=== PATIENT | female | born 1985 | race Caucasian/White ===

== ENCOUNTER 2017-02-13 10:02 | Emergency (ER) | payer OTHER ==
[2017-02-13 11:57] LABS: HEMOGLOBIN 11.1 gm/dl (12.3-15.3); RED BLOOD COUNT 3.83 M/UL (4.00-5.10); WHITE BLOOD COUNT 5.5 K/UL (4.5-11.0)
[2017-02-13 12:22] LABS: BUN/CREATININE RATIO 17 (0-10)
== END 2017-02-13 14:40 | disposition home or self-care (01) ==
LOC: ER1 10:02
PROVIDERS: Emergency Medicine
DX: G40.409 Other generalized epilepsy and epileptic syndromes, not intractable, without status epilepticus (principal); F17.200 Nicotine dependence, unspecified, uncomplicated
CPT/HCPCS: 36415; 71010; 80053; 80307; 81001; 82550; 82553; 83874; 84484; 84703; 85025; 93005; 96374; 99284; G0480; J1953; J7040; J7050

== ENCOUNTER → 2017-02-20 | Outpatient (CLI) | payer OTHER | LOC: LAB 15:11 | DX: Z11.4 Encounter for screening for human immunodeficiency virus [HIV] (principal); E72.20 Disorder of urea cycle metabolism, unspecified | CPT/HCPCS: 36415; 80074; 82140; 87390 ==

== ENCOUNTER 2017-02-24 17:12 | Emergency (ER) | payer OTHER ==
[2017-02-24 22:20] LABS: HEMOGLOBIN 10.6 gm/dl (12.3-15.3); RED BLOOD COUNT 3.67 M/UL (4.00-5.10); WHITE BLOOD COUNT 6.1 K/UL (4.5-11.0)
[2017-02-24 22:40] LABS: BUN/CREATININE RATIO 17 (0-10)
== END 2017-02-24 23:53 | disposition home or self-care (01) ==
LOC: ER1 17:12
PROVIDERS: Emergency Medicine
DX: B17.10 Acute hepatitis C without hepatic coma (principal); Z88.8 Allergy status to other drugs, medicaments and biological substances
CPT/HCPCS: 36415; 80053; 83690; 85025; 99284

== ENCOUNTER 2017-03-03 17:29 | Emergency (ER) | payer OTHER ==
[2017-03-03 19:05] LABS: HEMOGLOBIN 11.2 gm/dl (12.3-15.3); RED BLOOD COUNT 3.81 M/UL (4.00-5.10); WHITE BLOOD COUNT 5.7 K/UL (4.5-11.0)
[2017-03-03 19:24] LABS: BUN/CREATININE RATIO 20 (0-10)
== END 2017-03-04 00:35 | disposition home or self-care (01) ==
LOC: ER1 17:29
PROVIDERS: Family Medicine
DX: B18.2 Chronic viral hepatitis C (principal); G40.909 Epilepsy, unspecified, not intractable, without status epilepticus; F17.210 Nicotine dependence, cigarettes, uncomplicated; Z88.8 Allergy status to other drugs, medicaments and biological substances; Z79.899 Other long term (current) drug therapy
CPT/HCPCS: 36415; 76705; 80053; 81001; 82150; 83690; 84703; 85025; 85610; 96360; 99284; J7050; Q9962